=== PATIENT | male | born 1950 | race Caucasian/White ===

== ENCOUNTER 2017-10-04 08:39 | Outpatient (CLI) | payer MEDICARE, BC ==
--- NOTE | 2017-10-04 11:46 | MRI ---
MRI BRAIN WITHOUT IV CONTRAST: 10/04/2017 HISTORY: Gait abnormality. The patient has had complaints with equilibrium for several years. History of fal ls. COMPARISON: None available. FINDINGS: There are scattered punctate areas of increased FLAIR and T2 weight signal intensity seen within the periventricular and subcortical white matter, which are nonspecific but likely reflective of mild chr onic small vessel ischemic changes. There is no evidence of an acute infarction. There is a cavum septum pellucidum et vergae, which is a normal variant. The ventricular system is n ormal in size, shape, and position for the degree of sulcal atrophy. No mass effect or midline shift is seen. Appropriate flow voids are demonstrated at the base of the brain. Note is made of an empty sella tur cica. The orbits and the remainder of the skull base have a normal MRI appearance. Minimal mucosal thickening is seen in a few ethmoidal air cells. IMPRESSION: 1. No acute intracranial abnormality is demonstrated. 2. Findings likely reflective of mild chronic small vessel ischemic changes. 3. Mild cerebral and cerebellar volume loss. 4. Incidental note is made of an empty sella turcica. 5. Minimal sinus disease. POS: [facility]
== END 2017-10-04 08:40 | disposition home or self-care (01) ==
LOC: MRI 08:39
PROVIDERS: ATTEND Psychiatry & Neurology Neurology
DX: R26.9 Unspecified abnormalities of gait and mobility (principal)
CPT/HCPCS: 70551

== ENCOUNTER 2023-03-23 12:43 | Outpatient (CLI) | payer MEDICARE ==
[~2023-03-23 12:43] MED LIST: Iopamidol 370 76% 100 ML VIAL ONE
== END 2023-03-23 12:44 | disposition home or self-care (01) ==
LOC: BICCT 12:43
PROVIDERS: ATTEND Internal Medicine Gastroenterology
DX: R10.32 Left lower quadrant pain (principal); N40.0 Benign prostatic hyperplasia without lower urinary tract symptoms; R93.3 Abnormal findings on diagnostic imaging of other parts of digestive tract
CPT/HCPCS: 74177; 82565